=== PATIENT | male | born 1995 | race Caucasian/White ===

== ENCOUNTER 2017-10-22 17:42 | Emergency (ER) | payer OTHER ==
[2017-10-22] MEDS ORDERED: Ondansetron INJ* 2 MG/ML VIAL IV ONE (18:10)
[2017-10-22] MEDS ORDERED: NS 0.9% 1000 ML* 1,000 ML IV ONE (18:10)
[2017-10-22 18:29] LABS: ABS Basophils 0.1 10^3/ul (0-0.2); ABS Eosinophils 0 10^3/ul (0-0.6); ABS Lymphocytes 0.5 10^3/ul (1.0-4.8); ABS Monocytes 0.8 10^3/ul (0-0.8); ABS Neutrophils 10.7 10^3/ul (1.5-7.7); ABS Nucleated RBC 0 10^3/ul; Eosinophil % 0 % (0-6); Hematocrit 45 % (42-52); Hemoglobin 15.1 g/dl (14.0-18.0); Lymphocyte % 4.5 % (25-47); Mean Corpuscular HGB Conc 34 g/dl (31-36); Mean Corpuscular Hemoglobin 30 pg (27-31); Mean Corpuscular Volume 88 fL (80-94); Mean Platelet Volume 8.3 um3 (7.4-10.4); Nucleated Red Blood Cells % 0; Platelet Count 167 10^3/ul (150-450); Red Blood Count 5.09 10^6/ul (4.0-5.4); Red Cell Distribution Width 13 % (10.5-15); White Blood Count 12.1 10^3/ul (3.5-10.8)
[2017-10-22 18:35] LABS: INR 1.97 (0.77-1.02)
[2017-10-22 18:48] LABS: EGFR Non-African American 95.6 (>60)
[2017-10-22 19:53] LABS: Urine Appearance Clear; Urine Blood Negative (Negative); Urine Color Straw; Urine Ketones Negative (Negative); Urine Protein Negative (Negative); Urine Specific Gravity 1.006 (1.010-1.030); Urine Urobilinogen Negative (Negative)
[2017-10-22 21:57] VITALS: BP 141/76
--- NOTE | 2017-10-22 22:33 | ED ---
Flaco Simmons Stephanie, scribed for Becki Bruce MD on 10/22/17 at 1942 . GI/ HPI - HPI Summary HPI Summary: The pt is a 22 y/o M presenting to the ED with c/o N/V that began today. The pt states on 10/19/17 he felt tired. On 10/20/17 we awoke with chills, undocumented fever, myalgia and sore throat. Today the pt awoke with N/V/D and lightheadedness. The pt states he took Tylenol today with no relief. The pt went to [facility] today and tested negative for influenza and strep. He presents to [facility] with continued vomiting. - History of Current Complaint Chief Complaint: EDNauseaVomitDiarrh Time Seen by Provider: 10/22/17 18:06 Stated Complaint: ILLNESS/VOMITING Hx Obtained From: Patient Onset/Duration: Started Hours Ago Timing: Constant Severity: Moderate Current Severity: Moderate Pain Intensity: 8 Location of Pain: Diffuse Pain Characteristics: Cramping Associated Signs and Symptoms: Positive: Nausea, Vomiting, Fever, Chills, Other : - myalgia, sore throat Aggravating Factor(s): Nothing Alleviating Factor(s): Nothing - Allergy/Home Medications Allergies/Adverse Reactions: Allergies Allergy/AdvReac Type Severity Reaction Status Date / Time No Known Allergies Allergy Verified 10/22/17 17:46 PMH/Surg Hx/FS Hx/Imm Hx Previously Healthy: Yes Sensory History: Denies: Hx Legally Blind EENT History: Denies: Hx Deafness - Surgical History Surgery Procedure, Year, and Place: eye surgery as an infant. shoulder labrum repair 2016 Infectious Disease History: No Infectious Disease History: Denies: Traveled Outside the [place] in Last 30 Days - Family History Known Family History: Positive: Diabetes, Other - breast cancer- maternal - Social History Occupation: Student Lives: Dormitory/Roommates Alcohol Use: Weekly Hx Substance Use: Yes Substance Use Type: Reports: Marijuana Hx Tobacco Use: No Smoking Status (MU): Never Smoked Tobacco Have You Smoked in the Last Year: No Review of Systems Positive: Fever, Chills Positive: Sore Throat Cardiovascular: Negative Respiratory: Negative Positive: Vomiting, Diarrhea, Nausea Positive: no symptoms reported Positive: Myalgia Neurological: Other - lightheadedness Psychological: Normal All Other Systems Reviewed And Are Negative: Yes Physical Exam - Summary Physical Exam Summary: Appearance: Ill-appearing, moderate pain distress, Well-nourished Skin: Warm, color reflects adequate perfusion Head: Normal Head/Face inspection Eyes: Conjunctiva clear, PERRL, EOMI ENT: dry oral mucosa, TM's clear, pharynx red. No tonsillar swelling, hypertrophy or exudate Neck: Supple, no nodes, no JVD. Respiratory: Lungs clear, Normal breath sounds, no respiratory distress Cardio: RRR, No murmur, pulses normal, brisk capillary refill Abdomen: soft, nontender, no hepatosplenomegaly Bowel sounds: present Musculoskeletal: Strength Intact/ ROM intact. No calf tenderness. No edema. Psychological: Normal Neuro: Alert, muscle tone normal, no focal deficit Triage Information Reviewed: Yes Vital Signs On Initial Exam: Initial Vitals Temp Pulse Resp BP Pulse Ox 98.2 F 72 16 155/80 100 10/22/17 17:47 10/22/17 17:47 10/22/17 17:47 10/22/17 17:47 10/22/17 17:47 Vital Signs Reviewed: Yes Diagnostics - Vital Signs Vital Signs Temp Pulse Resp BP Pulse Ox 10/22/17 17:47 98.2 F 72 16 155/80 100 - Laboratory Lab Results: Lab Results 10/22/17 10/22/17 10/22/17 Range/Units 18:17 18:17 18:17 WBC 12.1 H (3.5-10.8) 10^3/ul RBC 5.09 (4.0-5.4) 10^6/ul Hgb 15.1 (14.0-18.0) g/dl Hct 45 (42-52) % MCV 88 (80-94) fL MCH 30 (27-31) pg MCHC 34 (31-36) g/dl RDW 13 (10.5-15) % Plt Count 167 (150-450) 10^3/ul MPV 8.3 (7.4-10.4) um3 Neut % (Auto) 88.8 H (38-83) % Lymph % (Auto) 4.5 L (25-47) % [facility] % (Auto) 6.2 (0-7) % Eos % (Auto) 0 (0-6) % Baso % (Auto) 0.5 (0-2) % Absolute Neuts (auto) 10.7 H (1.5-7.7) 10^3/ul Absolute Lymphs (auto) 0.5 L (1.0-4.8) 10^3/ul Absolute Monos (auto) 0.8 (0-0.8) 10^3/ul Absolute Eos (auto) 0 (0-0.6) 10^3/ul Absolute Basos (auto) 0.1 (0-0.2) 10^3/ul Absolute Nucleated RBC 0 10^3/ul Nucleated RBC % 0 INR (Anticoag Therapy) 1.97 H (0.77-1.02) Sodium 135 L (139-145) mmol/L Potassium 3.9 (3.5-5.0) mmol/L Chloride 100 L (101-111) mmol/L Carbon Dioxide 25 (22-32) mmol/L Anion Gap 10 (2-11) mmol/L BUN 8 (6-24) mg/dL Creatinine 0.98 (0.67-1.17) mg/dL Est GFR ( Amer) 123.0 (>60) Est GFR (Non-Af Amer) 95.6 (>60) BUN/Creatinine Ratio 8.2 (8-20) Glucose 118 H (70-100) mg/dL Lactic Acid (0.5-2.0) mmol/L Calcium 9.6 (8.6-10.3) mg/dL Magnesium 1.6 L (1.9-2.7) mg/dL Total Bilirubin 0.70 (0.2-1.0) mg/dL AST 15 (13-39) U/L ALT 13 (7-52) U/L Alkaline Phosphatase 49 (34-104) U/L Total Creatine Kinase 76 (10-223) U/L C-Reactive Protein 64.17 H (< 5.00) mg/L Total Protein 7.3 (6.4-8.9) g/dL Albumin 4.4 (3.2-5.2) g/dL Globulin 2.9 (2-4) g/dL Albumin/Globulin Ratio 1.5 (1-3) Amylase 33 (29-103) U/L Lipase < 10 L (11.0-82.0) U/L 10/22/17 Range/Units 18:17 WBC (3.5-10.8) 10^3/ul RBC (4.0-5.4) 10^6/ul Hgb (14.0-18.0) g/dl Hct (42-52) % MCV (80-94) fL MCH (27-31) pg MCHC (31-36) g/dl RDW (10.5-15) % Plt Count (150-450) 10^3/ul MPV (7.4-10.4) um3 Neut % (Auto) (38-83) % Lymph % (Auto) (25-47) % [facility] % (Auto) (0-7) % Eos % (Auto) (0-6) % Baso % (Auto) (0-2) % Absolute Neuts (auto) (1.5-7.7) 10^3/ul Absolute Lymphs (auto) (1.0-4.8) 10^3/ul Absolute Monos (auto) (0-0.8) 10^3/ul Absolute Eos (auto) (0-0.6) 10^3/ul Absolute Basos (auto) (0-0.2) 10^3/ul Absolute Nucleated RBC 10^3/ul Nucleated RBC % INR (Anticoag Therapy) (0.77-1.02) Sodium (139-145) mmol/L Potassium (3.5-5.0) mmol/L Chloride (101-111) mmol/L Carbon Dioxide (22-32) mmol/L Anion Gap (2-11) mmol/L BUN (6-24) mg/dL Creatinine (0.67-1.17) mg/dL Est GFR ( Amer) (>60) Est GFR (Non-Af Amer) (>60) BUN/Creatinine Ratio (8-20) Glucose (70-100) mg/dL Lactic Acid 1.3 (0.5-2.0) mmol/L Calcium (8.6-10.3) mg/dL Magnesium (1.9-2.7) mg/dL Total Bilirubin (0.2-1.0) mg/dL AST (13-39) U/L ALT (7-52) U/L Alkaline Phosphatase (34-104) U/L Total Creatine Kinase (10-223) U/L C-Reactive Protein (< 5.00) mg/L Total Protein (6.4-8.9) g/dL Albumin (3.2-5.2) g/dL Globulin (2-4) g/dL Albumin/Globulin Ratio (1-3) Amylase (29-103) U/L Lipase (11.0-82.0) U/L Result Diagrams: 10/22/17 18:17 10/22/17 18:17 Lab Statement: Any lab studies that have been ordered have been reviewed, and results considered in the medical decision making process. Re-Evaluation - Re-Evaluation First Eval Re-Evaluation Time: 20:52 Change: Improved - The pt states he feels better and has no nausea. ED physician discusses plan of discharge with the pt and the pt understands. GIGU Course/Dx - Course Course Of Treatment: The pt is a 22 y/o M presenting to the ED with c/o N/V. The pt was evaluated for source of fever and vomiting. He was hydrated in the ED and his symptoms improved. The pt is discharged with Zofran. Pt tested neg for mono. He had tested neg for influenza A and B, and strep at [facility] [place] [facility]. - Diagnoses Differential Diagnoses - Male: Appendicitis, Dehydration, Diarrhea, Enterocolitis, Gastroenteritis (Bacterial), Gastroenteritis (Viral), Pancreatitis, Other - mononucleosis Provider Diagnoses: Viral syndrome, Nausea & vomiting Discharge - Sign-Out/Discharge Documenting (check all that apply): Discharge/Admit/Transfer - discharge home to [facility] - Discharge Plan Condition: Stable Disposition: HOME Prescriptions: Ondansetron ODT TAB* [Zofran 4 MG Odt TAB*] 4 mg PO Q8H PRN #4 tab.odt PRN Reason: Nausea Patient Education Materials: Acute Nausea and Vomiting (ED), Viral Syndrome (ED ) Forms: *School Release Referrals: [facility] - Gerardo BARTON [Primary Care Provider] - 2 Days Additional Instructions: You do not have mono and we did not find any serious abnormalities in your blood tests. We have diagnosed you with a viral syndrome, and treatment is supportive care with tylenol or ibuprofen for fever. We also gave you ondansetron in your IV which helped your nausea and vomiting, and we have sent a prescription for that to [facility] that you may use if you continue to have nausea. Return to the ER if you have any new or worsening symptoms. - Billing Disposition and Condition Condition: STABLE Disposition: HOME The documentation as recorded by the Flaco love Stephanie accurately reflects the service I personally performed and the decisions made by me, Becki Bruce MD.
== END 2017-10-22 21:56 | disposition home or self-care (01) ==
LOC: ED 17:42
DX: B34.9 Viral infection, unspecified (principal); R11.2 Nausea with vomiting, unspecified
CPT/HCPCS: 36415; 80053; 81003; 82150; 82550; 83605; 83690; 83735; 85025; 85610; 86140; 86308; 96361; 96374; 99284; J2405

== ENCOUNTER 2017-10-23 23:52 | Emergency (ER) | payer OTHER ==
[2017-10-24] MEDS ORDERED: NS 0.9% 1000 ML* 1,000 ML IV ONE (01:15)
[2017-10-24] MEDS ORDERED: Ondansetron INJ* 2 MG/ML VIAL IV ONE (01:21)
--- NOTE | 2017-10-24 01:23 | ED ---
HPI Febrile Illness - HPI Summary HPI Summary: 22 male presents with fever and nausea for the past 3 days. He states he feels very fatigued. He denies any dizziness. He denies any neck pain. He denies any headache. He denies any shortness breath or chest pain. He admits to cough. He denies any sore throat. He admits to nasal congestion. He admits to nausea but denies any vomiting or diarrhea. He has not picked up a prescription for Zofran. He has been taking Tylenol ibuprofen alternate but states that he feels dehydrated. He has been drinking feels like that is not enough. He has all over muscle aches. He has been tested flu and strep was negative. was seen here two days ago and nothing significant was found on his labs. states that feels that is getting sicker and sicker. He has no medical conditions. No one else is sick. - History of Current Complaint Chief Complaint: EDFluSymptoms Time Seen by Provider: 10/24/17 01:15 Pain Intensity: 0 - Allergy/Home Medications Allergies/Adverse Reactions: Allergies Allergy/AdvReac Type Severity Reaction Status Date / Time No Known Allergies Allergy Verified 10/22/17 17:46 PMH/Surg Hx/FS Hx/Imm Hx Endocrine/Hematology History: Denies: Hx Anticoagulant Therapy Respiratory History: Denies: Hx Asthma Sensory History: Denies: Hx Legally Blind, Hx Deafness Opthamlomology History: Denies: Hx Legally Blind - Surgical History Surgery Procedure, Year, and Place: eye surgery as an infant. shoulder labrum repair 2016 Infectious Disease History: No Infectious Disease History: Denies: Traveled Outside the [place] in Last 30 Days - Family History Known Family History: Positive: Diabetes, Other - breast cancer- maternal - Social History Alcohol Use: Weekly Hx Substance Use: Yes Substance Use Type: Reports: Marijuana Hx Tobacco Use: No Smoking Status (MU): Never Smoked Tobacco Have You Smoked in the Last Year: No Review of Systems Positive: Fever, Chills, Fatigue Negative: Chest Pain Positive: Cough. Negative: Shortness Of Breath Positive: Nausea. Negative: Abdominal Pain, Vomiting, Diarrhea All Other Systems Reviewed And Are Negative: Yes Physical Exam Triage Information Reviewed: Yes Vital Signs On Initial Exam: Initial Vitals Temp Pulse Resp BP Pulse Ox 99.8 F 88 20 147/70 98 10/23/17 23:56 10/23/17 23:56 10/23/17 23:56 10/23/17 23:56 10/23/17 23:56 Vital Signs Reviewed: Yes Appearance: Positive: Well-Appearing Skin: Positive: Warm, Dry Head/Face: Positive: Normal Head/Face Inspection Eyes: Positive: Normal, EOMI, EBER, Conjunctiva Clear ENT: Positive: Normal ENT inspection, Pharynx normal, Nasal congestion, TMs normal Neck: Positive: Supple, Nontender, No Lymphadenopathy. Negative: Nuchal Rigidity Respiratory/Lung Sounds: Positive: Clear to Auscultation, Breath Sounds Present Cardiovascular: Positive: Normal, RRR Abdomen Description: Positive: Nontender, Soft Bowel Sounds: Positive: Present Musculoskeletal: Positive: Normal Neurological: Positive: Normal Psychiatric: Positive: Normal Diagnostics - Vital Signs Vital Signs Temp Pulse Resp BP Pulse Ox 10/23/17 23:56 99.8 F 88 20 147/70 98 - Laboratory Result Diagrams: 10/24/17 01:32 10/24/17 01:32 Lab Statement: Any lab studies that have been ordered have been reviewed, and results considered in the medical decision making process. - Radiology chest Xray Interpretation: No Acute Changes Radiology Interpretation Completed By: ED Physician Re-Evaluation - Re-Evaluation First Eval Re-Evaluation Time: 02:12 Change: Improved Comment: feeling better after fluids Course/Dx - Course Course Of Treatment: 22 male presents with fever and nausea for the past 3 days. He states he feels very fatigued. He denies any dizziness. He denies any neck pain. He denies any headache. He denies any shortness breath or chest pain. He admits to cough. He denies any sore throat. He admits to nasal congestion. He admits to nausea but denies any vomiting or diarrhea. He has not picked up a prescription for Zofran. He has been taking Tylenol ibuprofen alternate but states that he feels dehydrated. He has been drinking feels like that is not enough. He has all over muscle aches. He has been tested flu and strep was negative. was seen here two days ago and nothing significant was found on his labs. states that feels that is getting sicker and sicker. He has no medical conditions. No one else is sick. On exam vitals normal. Patient appears hydrated. Lungs clear to auscultation. Abdomen soft nontender. got labs and chest x-ray make sure nothing has changed. We'll give him fluids. Told that needs to start the Zofran for the nausea and encourage fluids. chest xray read by me as normal. labs:wbc improved. electrolytes same as previous. will have continue zofran and encourage fluids. patient understand and agrees with plan. - Febrile Illness Differential Diagnoses: Bacteremia, Pneumonia, Viremia - Diagnoses Provider Diagnoses: Fever Discharge - Sign-Out/Discharge Documenting (check all that apply): Discharge/Admit/Transfer - Discharge Plan Condition: Good Disposition: HOME Patient Education Materials: Viral Syndrome (ED) Referrals: [facility] - Gerardo BARTON [Primary Care Provider] - Additional Instructions: Alternate Tylenol and ibuprofen every 6 hours Take zofran every 6 hours for nausea Use saline rinses in nose for nasal congestion Humidifier in room for cough Drink plenty of fluids and eat small snacks throughout the day Follow up with primary within 3 days Return to ED if develop any new or worsening symptoms - Billing Disposition and Condition Condition: GOOD Disposition: HOME
[2017-10-24] MEDS ORDERED: Ketorolac INJ* 30 MG/ML 1 ML VIAL IV PUSH ONE (01:25)
[2017-10-24 01:45] LABS: ABS Basophils 0 10^3/ul (0-0.2); ABS Eosinophils 0 10^3/ul (0-0.6); ABS Lymphocytes 0.8 10^3/ul (1.0-4.8); ABS Monocytes 1.1 10^3/ul (0-0.8); ABS Neutrophils 9.1 10^3/ul (1.5-7.7); ABS Nucleated RBC 0 10^3/ul; Eosinophil % 0.1 % (0-6); Hematocrit 44 % (42-52); Hemoglobin 14.7 g/dl (14.0-18.0); Lymphocyte % 7.6 % (25-47); Mean Corpuscular HGB Conc 34 g/dl (31-36); Mean Corpuscular Hemoglobin 30 pg (27-31); Mean Corpuscular Volume 88 fL (80-94); Mean Platelet Volume 7.9 um3 (7.4-10.4); Nucleated Red Blood Cells % 0; Platelet Count 162 10^3/ul (150-450); Red Blood Count 4.99 10^6/ul (4.0-5.4); Red Cell Distribution Width 13 % (10.5-15); White Blood Count 11.1 10^3/ul (3.5-10.8)
[2017-10-24 02:01] LABS: EGFR Non-African American 91.3 (>60)
[2017-10-24] MEDS ORDERED: O ndansetron ODT 4MG 2TAB PRPK 4 MG PAK PO ONE (02:10)
[2017-10-24 03:20] VITALS: BP 142/82
--- NOTE | 2017-10-24 08:06 | RAD ---
INDICATION: Cough and fever. COMPARISON: No relevant prior exams available on the [facility] PACS for comparison. TECHNIQUE: Dual energy PA and routine lateral views of the chest were obtained. REPORT: Clear lungs and pleural spaces. Negative for pneumothorax. The heart, pulmonary vasculature, and mediastinal contours are unremarkable. Unremarkable osseous structures and soft tissue contours. IMPRESSION: No evidence for acute intrathoracic disease.
== END 2017-10-24 03:24 | disposition home or self-care (01) ==
LOC: ED 23:52
DX: R50.9 Fever, unspecified (principal); R53.83 Other fatigue; R05 Cough; R09.81 Nasal congestion; R11.0 Nausea
CPT/HCPCS: 36415; 71046; 80053; 83735; 85025; 96374; 96375; 99283; A9270-GY; J1885; J2405